=== PATIENT | male | born 2005 | race Caucasian/White ===

== ENCOUNTER 2025-01-29 12:00 | Emergency (ER) | payer BC ==
[2025-01-29] MEDS ORDERED: Ibuprofen 200 MG TAB ONE (12:49)
[2025-01-29] MEDS ORDERED: Acetaminophen 325 MG TAB ONE (12:50)
== END 2025-01-29 13:12 | disposition home or self-care (01) ==
LOC: CSHERS 12:00
DX: S40.212A Abrasion of left shoulder, initial encounter (principal); V86.55XA Driver of 3- or 4- wheeled all-terrain vehicle (ATV) injured in nontraffic accident, initial encounter
CPT/HCPCS: 99283